=== PATIENT | female | born 1990 | race Caucasian/White ===

== ENCOUNTER 2020-12-15 06:12 | Inpatient (IN) | payer OTHER ==
[2020-12-15 07:22] LABS: HCT 33.1 % (37.0-47.0); HGB 10.7 g/dl (12.5-16.0); MCHC 32.3 g/dL (32.0-36.0); MCV 86.6 fL (78.0-100.0); MPV 11.1 fL (6.0-9.5); RBC 3.82 M/uL (4.20-5.40); RDW 16.1 % (11.5-14.0); WBC 8.7 K/uL (4.0-10.5)
[2020-12-15 15:54] LABS: AMPHETAMINES NEGATIVE (NEGATIVE); BARBITURATES NEGATIVE (NEGATIVE); ECSTASY (MDMA) NEGATIVE (NEGATIVE); MARIJUANA (THC) NEGATIVE (NEGATIVE); METHADONE NEGATIVE (NEGATIVE); OPIATES NEGATIVE (NEGATIVE); OXYCODONE NEGATIVE (NEGATIVE)
[2020-12-15 15:58] LABS: BILIRUBIN NEGATIVE (NEGATIVE); BLOOD TRACE-INTACT Ery/uL (NEGATIVE); CLARITY CLEAR (CLEAR); COLOR YELLOW (YELLOW); GLUCOSE (U) NORMAL (NORMAL); LEUKOCYTES NEGATIVE Leu/uL (NEGATIVE); NITRITE NEGATIVE (NEGATIVE); PROTEIN NEGATIVE (NEGATIVE); SPECIFIC GRAVITY 1.025 (1.001-1.030); UROBILINOGEN 0.2 mg/dL (0.2-1.0); pH 6.5 (5.0-9.0)
[2020-12-15 16:00] LABS: BACTERIA 1+; URINARY RBC RARE
[2020-12-16 05:21] LABS: HCT 31.4 % (37.0-47.0); HGB 10.1 g/dl (12.5-16.0); MCH 28.1 pg (25.0-31.0); MCHC 32.2 g/dL (32.0-36.0); MCV 87.5 fL (78.0-100.0); MPV 11.2 fL (6.0-9.5); RBC 3.59 M/uL (4.20-5.40); RDW 15.9 % (11.5-14.0); WBC 13.3 K/uL (4.0-10.5)
[2020-12-17 06:38] LABS: BASOPHIL 0.3 % (0-2); HCT 31.8 % (37.0-47.0); HGB 10.2 g/dl (12.5-16.0); LYMPHOCYTE 15.9 % (15-48); MCH 28.6 pg (25.0-31.0); MCHC 32.1 g/dL (32.0-36.0); MCV 89.1 fL (78.0-100.0); MPV 11.4 fL (6.0-9.5); NEUTROPHIL 74.8 % (41-80); NRBC 0; PLT 145 K/uL (150-400); RBC 3.57 M/uL (4.20-5.40); WBC 9.5 K/uL (4.0-10.5)
== END 2020-12-17 18:03 | disposition home or self-care (01) | DRG 806 ==
LOC: FOB 06:12
PROVIDERS: Obstetrics & Gynecology; ADMIT Obstetrics & Gynecology
PROC: 10907ZC Drainage of Amniotic Fluid, Therapeutic from Products of Conception, Via Natural or Artificial Opening (ICD-10-PCS; principal; 2020-12-15)
PROC: 10E0XZZ Delivery of Products of Conception, External Approach (ICD-10-PCS; 2020-12-15)
PROC: 4A1HX4Z Monitoring of Products of Conception, Cardiac Electrical Activity, External Approach (ICD-10-PCS; 2020-12-15)
PROC: 0HQ9XZZ Repair Perineum Skin, External Approach (ICD-10-PCS; 2020-12-15)
DX: O34.219 Maternal care for unspecified type scar from previous cesarean delivery (principal); O72.1 Other immediate postpartum hemorrhage; Z37.0 Single live birth; N85.8 Other specified noninflammatory disorders of uterus; Z3A.39 39 weeks gestation of pregnancy; O70.0 First degree perineal laceration during delivery; O34.211 Maternal care for low transverse scar from previous cesarean delivery; P08.1 Other heavy for gestational age newborn; O99.214 Obesity complicating childbirth; E66.9 Obesity, unspecified; O16.4 Unspecified maternal hypertension, complicating childbirth; O99.02 Anemia complicating childbirth; D50.9 Iron deficiency anemia, unspecified; Z20.822 Contact with and (suspected) exposure to COVID-19
CPT/HCPCS: 36415; 80305; 81001; 85025; 86850; 86900; 86901; 90744; J2210; J2405; J7120; U0002